=== PATIENT | male | born 1960 | race Caucasian/White ===

== ENCOUNTER 2023-09-22 06:26 | Day surgery (SDC) | payer BC, OTHER ==
[2023-09-22] MEDS: Lactated Ringers 1,000 ML IV SCH (06:51)
[2023-09-22] MEDS ORDERED: Propofol 200 MG/20 ML SDV ONE (08:09)
[2023-09-22] MEDS ORDERED: fentaNYL 100 MCG/2 ML SDV ONE (08:10)
== END 2023-09-22 09:50 | disposition home or self-care (01) ==
LOC: VM.SDS 06:26
PROVIDERS: ATTEND Student in an Organized Health Care Education/Training Program
DX: Z12.11 Encounter for screening for malignant neoplasm of colon (principal); D12.3 Benign neoplasm of transverse colon; D12.2 Benign neoplasm of ascending colon; E78.5 Hyperlipidemia, unspecified; I10 Essential (primary) hypertension; H91.90 Unspecified hearing loss, unspecified ear; L20.81 Atopic neurodermatitis; Z79.899 Other long term (current) drug therapy
CPT/HCPCS: 00812; J2704; J3010; J7120

== ENCOUNTER 2024-12-23 09:30 | Emergency (ER) | payer BC, OTHER | END 2024-12-23 10:46 | disposition home or self-care (01) | LOC: VM.ED 09:30 | DX: S06.0X0A Concussion without loss of consciousness, initial encounter (principal); I10 Essential (primary) hypertension; E78.00 Pure hypercholesterolemia, unspecified; Z79.82 Long term (current) use of aspirin; Z79.899 Other long term (current) drug therapy; W11.XXXA Fall on and from ladder, initial encounter | CPT/HCPCS: 70450; 99283 ==